=== PATIENT | male | born 1960 | race Caucasian/White ===

== ENCOUNTER 2022-02-17 12:21 | Emergency (ER) | payer OTHER ==
[~2022-02-17] VITALS: Ht 175.3 cm; Wt 83.0 kg
[2022-02-17] MEDS ORDERED: LIDOCAINE VISCUS 2% 15 ML UDC MM ONE (12:45)
[2022-02-17] MEDS ORDERED: KETOROLAC TROMETHAMINE 15 MG INJ IM ONE (12:45)
[2022-02-17] MEDS ORDERED: TDAP DIPH,PERTUSS,TET VAC/PF 0.5 ML DISP.SYRIN IM ONE ×2 (12:45→13:19)
[2022-02-17] MEDS ORDERED: KETOROLAC TROMETHAMINE 30 MG INJ ONE (13:19)
[2022-02-17] MEDS ORDERED: LIDOCAINE VISCUS 2% 15 ML UDC ONE (13:20)
[2022-02-17] MEDS ORDERED: NEOMY/BACITRA/POLYMYXIN B OINT UD PACKET TP ONE ×2 (13:52→14:00)
--- NOTE | 2022-02-17 15:00 | NUR ---
PT WAS EVALUATED BY DR HANSEN. PT WAS D/C'd TO HOME. D/C INSTRUCTIONS GIVEN TO THE PT BY DR HANSEN.DRESSING IS INTACT . NO BLEEDING.
[2022-02-17 15:02] VITALS: BP 142/88
== END 2022-02-17 15:54 | disposition home or self-care (01) ==
LOC: ER 12:25
DX: S00.83XA Contusion of other part of head, initial encounter (principal); S70.11XA Contusion of right thigh, initial encounter; V19.88XA Pedal cyclist (driver) (passenger) injured in other specified transport accidents, initial encounter; Y93.55 Activity, bike riding; Y92.89 Other specified places as the place of occurrence of the external cause; S41.101A Unspecified open wound of right upper arm, initial encounter; S81.801A Unspecified open wound, right lower leg, initial encounter
CPT/HCPCS: 70450; 73030; 73130; 90471; 90715; 96372; 99284; J1885; A4663